=== PATIENT | female | born 1965 | race Caucasian/White ===

== ENCOUNTER 2018-01-07 16:52 | Emergency (ER) | payer MEDICARE ==
[2018-01-07] MEDS ORDERED: PROVENTIL 2.5 MG/3 ML NEB IH ONE ×4 (18:02→21:02)
[2018-01-07] MEDS ORDERED: Pepcid 20 MG VIAL IV ONE ×3 (18:02→18:26)
[2018-01-07 18:26] LABS: BASOPHIL % 0.3 % (0.0-0.4); Basophil (Absolute #) 0.03 (0-0.4); Eosinophil % 2.4 % (0.00-5.0); Eosinophil (Absolute #) 0.24 (0-0.5); Granulocyte Absolute (ANC) 7.21 (1.4-6.9); Granulocytes % 73.1 % (36.0-66.0); Hematocrit 38.3 % (35-47); Hemoglobin 12.5 gm/dl (12.0-16.0); Lymphocyte (Absolute #) 1.84 (1.0-4.6); Lymphocytes % 18.6 % (24.0-44.0); Mean Cell Volume 85.5 fl (78-100); Mean Corpuscular Hemoglobin 27.9 pg (26-32); Mean Corpuscular Hgb Concent. 32.6 g/dl (32-36); Mean Platelet Volume 8.4 fl (6-9.5); Monocyte (Absolute #) 0.55 (0.0-1.3); Monocytes % 5.6 % (0.0-12.0); Platelet Count 284 K/mm3 (150-450); Red Blood Count 4.48 M/mm3 (4.1-5.4); Red Cell Distribution Width 14.5 % (11.5-14.0); White Blood Count 9.9 K/mm3 (4.0-10.5)
[2018-01-07 18:38] LABS: INR 1.09 (0.8-3.0)
[2018-01-07 18:44] LABS: ALBUMIN 4.4 g/dl (3.5-5.0); ALKALINE PHOSPHATASE 131 U/L (38-126); ANION GAP 14.5 MEQ/L (5-15); BLOOD UREA NITROGEN 19 mg/dl (7-17); CHLORIDE 102 mEq/L (98-107); Calcium 9.9 mg/dL (8.4-10.2); Carbon Dioxide 29 mmol/L (22-30); Creatinine 1 0.78 mg/dl (0.52-1.04); Glucose 108 mg/dL (74-106); Potassium 3.8 mmol/L (3.5-5.1); SGOT/AST 25 U/L (14-36); SGPT/ALT 27 U/L (0-35); SODIUM 141 mmol/L (137-145); Total Protein 7.8 mg/dl (6.3-8.2)
--- NOTE | 2018-01-07 20:22 | ERPHSYRPT ---
- History of Present Illness Time Seen by Provider: 01/07/18 17:56 Source: patient, family () Patient Subjective Stated Complaint: pt here for sob,cough and fever,pt is deaf and is commumnicating through writing and her friend Triage Nursing Assessment: pt alert , resp easy, skin w/d pale. chest clear Physician History: Pt interviewed initially with RN and chen cano writing board and subsequently with sign boring machine operator. CC: chest pain, short of air Hx: 52 y/o patient of Dr Bill Castillo in . She reports being deaf, uses sign language, and has had lots of cough all through the night last night. She has anterior chest tightness. No exertional symptoms. No fever or chills. No N/V/D. No abd pain. She has hx of asthma. 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 She is unsure about cardiology. Timing/Duration: yesterday Severity: moderate Allergies/Adverse Reactions: acetaminophen [From Tylenol] Allergy (Verified 01/07/18 17:28) loratadine [From Claritin] Allergy (Verified 01/07/18 17:28) Home Medications: Aspirin 81 gm Chew [Baby Aspirin 81 mg Chew] 81 mg DAILY 01/07/18 [History ] Warfarin Sodium 2.5 mg [Coumadin 2.5 MG] 2.5 mg DAILY 01/07/18 [History] Hx Tetanus, Diphtheria Vaccination/Date Given: Yes Hx Influenza Vaccination/Date Given: Yes Hx Pneumococcal Vaccination/Date Given: No Immunizations Up to Date: Yes - Review of Systems Constitutional: Fatigue, Malaise, No Fever, No Chills Eyes: No Symptoms Ears, Nose, & Throat: No Symptoms Respiratory: Cough (copious), Dyspnea Cardiac: Chest Pain Abdominal/Gastrointestinal: No Abdominal Pain, No Nausea, No Vomiting, No Diarrhea Genitourinary Symptoms: No Dysuria Skin: No Rash Neurological: No Headache All Other Systems: Reviewed and Negative - Past Medical History Pertinent Past Medical History: Yes Neurological History: Stroke Respiratory History: Asthma Other Medical History: blood clot - Past Surgical History Past Surgical History: Yes Musculoskeletal: Orthopedic Surgery Female Surgical History: Hysterectomy Other Surgical History: shoulder - Social History Smoking Status: Never smoker Exposure to second hand smoke: No Drug Use: none Patient Lives Alone: No - Female History Hx Last Menstrual Period: post Hx Now: No - Nursing Vital Signs Nursing Vital Signs: Initial Vital Signs Temperature 97.7 F 01/07/18 17:12 Pulse Rate 63 01/07/18 17:12 Respiratory Rate 16 01/07/18 17:12 Blood Pressure 120/75 01/07/18 17:12 O2 Sat by Pulse Oximetry 100 01/07/18 17:12 Pain Scale Pain Intensity 2 - Physical Exam General Appearance: alert Eye Exam: PERRL/EOMI Ears, Nose, Throat Exam: normal ENT inspection, moist mucous membranes Neck Exam: normal inspection, non-tender, supple Respiratory Exam: normal breath sounds, other (no coughing here) Cardiovascular Exam: regular rate/rhythm, No murmur Gastrointestinal/Abdomen Exam: soft, No tenderness, No distention Back Exam: normal inspection Extremity Exam: normal inspection, normal range of motion, No calf tenderness, No pedal edema Neurologic Exam: alert, oriented x 3, cooperative, 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, sensation nml, other (deaf), No motor deficits Skin Exam: warm, dry, No rash SpO2 Interpretation: normal SpO2: 98 Oxygen Delivery: Room Air - Course Nursing assessment & vital signs reviewed: Yes EKG Interpreted by Me: RATE (61), Sinus Rhythm, NORMAL AXIS, NORMAL INTERVALS ( QTc 400), NORMAL QRS, NORMAL ST-T - Radiology Exams cxr X-ray Interpretation: Interpreted by me (CM, no acute, no pneumonia) Ordered Tests: Active Orders 24 hr Category Date Time Status Billiard Table Assembler STAT Care 01/07/18 17:57 Active EKG-ER Only STAT Care 01/07/18 17:57 Active IV Insertion STAT Care 01/07/18 17:57 Active Pulse Oximetry (ED) STAT Care 01/07/18 17:57 Active CHEST 1 VIEW (PORTABLE) Stat Exams 01/07/18 17:57 Taken CBC W DIFF Stat Lab 01/07/18 18:25 Completed CMP Stat Lab 01/07/18 18:31 Completed D-DIMER QUANTITATION Stat Lab 01/07/18 20:00 Completed Lactic Acid Stat Lab 01/07/18 18:20 Completed PROTIME WITH INR Stat Lab 01/07/18 18:31 Completed TROPONIN Q3H Lab 01/07/18 18:31 Completed TROPONIN Q3H Lab 01/07/18 20:25 Completed TROPONIN Q3H Lab 01/08/18 00:15 Ordered TROPONIN Q3H Lab 01/08/18 03:15 Ordered TROPONIN Q3H Lab 01/08/18 06:15 Ordered Respiratory Nebulizer STAT RT 01/07/18 18:03 Completed Respiratory Nebulizer STAT RT 01/07/18 20:56 Active Medication Summary Discontinued Medications Generic Name Dose Route Start Last Admin Trade Name Freq PRN Reason Stop Dose Admin Albuterol Sulfate 2.5 mg 01/07/18 18:02 01/07/18 18:30 Proventil 2.5 Mg/3 Ml Neb IH 01/07/18 18:03 2.5 mg STAT ONE Administration Albuterol Sulfate Confirm 01/07/18 18:06 Proventil 2.5 Mg/3 Ml Neb Administered 01/07/18 18:07 Dose 2.5 mg IH .STK-MED ONE Albuterol Sulfate 2.5 mg 01/07/18 20:56 01/07/18 21:04 Proventil 2.5 Mg/3 Ml Neb IH 01/07/18 20:57 2.5 mg STAT ONE Administration Albuterol Sulfate Confirm 01/07/18 21:02 Proventil 2.5 Mg/3 Ml Neb Administered 01/07/18 21:03 Dose 2.5 mg IH .STK-MED ONE Doxycycline Hyclate 100 mg 01/07/18 20:56 01/07/18 21:03 Vibramycin 100 Mg PO 01/07/18 20:57 100 mg STAT ONE Administration Doxycycline Hyclate Confirm 01/07/18 21:01 Vibramycin 100 Mg Administered 01/07/18 21:02 Dose 100 mg .ROUTE .STK-MED ONE Famotidine 20 mg 01/07/18 18:02 01/07/18 18:24 Pepcid 20 Mg Vial IV 01/07/18 18:03 20 mg STAT ONE Administration Famotidine Confirm 01/07/18 18:23 Pepcid 20 Mg Vial Administered 01/07/18 18:24 Dose 20 mg IV .STK-MED ONE Famotidine Confirm 01/07/18 18:26 Pepcid 20 Mg Vial Administered 01/07/18 18:27 Dose 20 mg IV .STK-MED ONE Ibuprofen 400 mg 01/07/18 20:55 01/07/18 21:03 Motrin 400 Mg PO 01/07/18 20:56 400 mg STAT ONE Administration Ibuprofen Confirm 01/07/18 21:01 Motrin 400 Mg Administered 01/07/18 21:02 Dose 400 mg .ROUTE .STK-MED ONE Lab/Rad Data: Laboratory Result Diagrams 01/07/18 18:25 01/07/18 18:31 Laboratory Results 01/07/18 01/07/18 01/07/18 Range/Units 20:25 20:00 18:31 WBC (4.0-10.5) K/mm3 RBC (4.1-5.4) M/mm3 Hgb (12.0-16.0) gm/dl Hct (35-47) % MCV (78-100) fl MCH (26-32) pg MCHC (32-36) g/dl RDW (11.5-14.0) % Plt Count (150-450) K/mm3 MPV (6-9.5) fl Gran % (36.0-66.0) % Lymphocytes % (24.0-44.0) % Monocytes % (0.0-12.0) % Eosinophils % (0.00-5.0) % Basophils % (0.0-0.4) % Basophils # (0-0.4) INR (0.8-3.0) D-Dimer < 215 (0-500) ng/mL Sodium (137-145) mmol/L Potassium (3.5-5.1) mmol/L Chloride (98-107) mEq/L Carbon Dioxide (22-30) mmol/L Anion Gap (5-15) MEQ/L BUN (7-17) mg/dl Creatinine (0.52-1.04) mg/dl Estimated GFR ML/MIN Glucose (74-106) mg/dL Lactic Acid (0.4-2.0) Calcium (8.4-10.2) mg/dL Total Bilirubin (0.2-1.3) mg/d? AST (14-36) U/L ALT (0-35) U/L Alkaline Phosphatase (38-126) U/L Troponin I < 0.012 < 0.012 (0.000-0.034) ng/ml Serum Total Protein (6.3-8.2) mg/dl Albumin (3.5-5.0) g/dl 01/07/18 01/07/18 01/07/18 Range/Units 18:31 18:31 18:25 WBC 9.9 (4.0-10.5) K/mm3 RBC 4.48 (4.1-5.4) M/mm3 Hgb 12.5 (12.0-16.0) gm/dl Hct 38.3 (35-47) % MCV 85.5 (78-100) fl MCH 27.9 (26-32) pg MCHC 32.6 (32-36) g/dl RDW 14.5 H (11.5-14.0) % Plt Count 284 (150-450) K/mm3 MPV 8.4 (6-9.5) fl Gran % 73.1 H (36.0-66.0) % Lymphocytes % 18.6 L (24.0-44.0) % Monocytes % 5.6 (0.0-12.0) % Eosinophils % 2.4 (0.00-5.0) % Basophils % 0.3 (0.0-0.4) % Basophils # 0.03 (0-0.4) INR 1.09 (0.8-3.0) D-Dimer (0-500) ng/mL Sodium 141 (137-145) mmol/L Potassium 3.8 (3.5-5.1) mmol/L Chloride 102 (98-107) mEq/L Carbon Dioxide 29 (22-30) mmol/L Anion Gap 14.5 (5-15) MEQ/L BUN 19 H (7-17) mg/dl Creatinine 0.78 (0.52-1.04) mg/dl Estimated GFR > 60 ML/MIN Glucose 108 H (74-106) mg/dL Lactic Acid (0.4-2.0) Calcium 9.9 (8.4-10.2) mg/dL Total Bilirubin 0.30 (0.2-1.3) mg/d? AST 25 (14-36) U/L ALT 27 (0-35) U/L Alkaline Phosphatase 131 H (38-126) U/L Troponin I (0.000-0.034) ng/ml Serum Total Protein 7.8 (6.3-8.2) mg/dl Albumin 4.4 (3.5-5.0) g/dl 01/07/18 Range/Units 18:20 WBC (4.0-10.5) K/mm3 RBC (4.1-5.4) M/mm3 Hgb (12.0-16.0) gm/dl Hct (35-47) % MCV (78-100) fl MCH (26-32) pg MCHC (32-36) g/dl RDW (11.5-14.0) % Plt Count (150-450) K/mm3 MPV (6-9.5) fl Gran % (36.0-66.0) % Lymphocytes % (24.0-44.0) % Monocytes % (0.0-12.0) % Eosinophils % (0.00-5.0) % Basophils % (0.0-0.4) % Basophils # (0-0.4) INR (0.8-3.0) D-Dimer (0-500) ng/mL Sodium (137-145) mmol/L Potassium (3.5-5.1) mmol/L Chloride (98-107) mEq/L Carbon Dioxide (22-30) mmol/L Anion Gap (5-15) MEQ/L BUN (7-17) mg/dl Creatinine (0.52-1.04) mg/dl Estimated GFR ML/MIN Glucose (74-106) mg/dL Lactic Acid 0.8 (0.4-2.0) Calcium (8.4-10.2) mg/dL Total Bilirubin (0.2-1.3) mg/d? AST (14-36) U/L ALT (0-35) U/L Alkaline Phosphatase (38-126) U/L Troponin I (0.000-0.034) ng/ml Serum Total Protein (6.3-8.2) mg/dl Albumin (3.5-5.0) g/dl - Progress Progress Note: 01/07/18 20:21 She felt better after pepcid and alb neb. Troponin neg. Unsure about heart and blood clot hx. REports on warfarin but INR low. EKG reassuring. Will get D- dimer and second troponin. She prefers to go home. The pain seems to be from her coughing. 01/07/18 20:54 D-dimer negative so PE not suspected. HR in 60's. 01/07/18 21:13 The second troponin is negative. She feels better and wants to go home. Will release with instructions. Counseled pt/family regarding: lab results, diagnosis, need for follow-up, rad results - Departure Time of Disposition: 21:13 Departure Disposition: Home Clinical Impression: Acute bronchitis, Chest pain, Subtherapeutic international normalized ratio ( INR) Condition: Fair Critical Care Time: No Referrals: BILL CASTILLO [Primary Care Provider] - Instructions: Acute Bronchitis, Chest Pain (DC), Anti-Clotting Medicines: Warfarin (Coumadin) Additional Instructions: You need to call Dr Castillo tomorrow about the warfarin as INR is low. Rx doxycycline. Rx albuterol MDI. Return for problems or concerns. Prescriptions: Albuterol Sulfate [Albuterol Sulfate Hfa] 2 puff IH Q4-6HPRN PRN #1 [email or web address] PRN Reason: cough or wheeze Doxycycline Hyclate 100 mg [Vibramycin 100 MG] 1 tab PO BID #20 tab
[2018-01-07] MEDS ORDERED: MOTRIN 400 MG PO ONE (20:55)
[2018-01-07] MEDS ORDERED: Vibramycin 100 MG PO ONE (20:56)
[2018-01-07] MEDS ORDERED: Vibramycin 100 MG ONE (21:01)
[2018-01-07] MEDS ORDERED: MOTRIN 400 MG ONE (21:01)
[2018-01-07 21:30] VITALS: BP 132/56
[2018-01-07 21:34] VITALS: PULSE 66; O2SAT 98
--- NOTE | 2018-01-08 08:49 | XRAY ---
Indication: Short of breath, fever, and cough. Comparison: None Portable chest demonstrates borderline cardiomegaly. No focal infiltrate, consolidation, or large effusion. Bony thorax intact with mild spinal degenerative changes. Impression: Borderline cardiomegaly. Negative acute pneumonic process or CHF.
== END 2018-01-07 21:30 | disposition home or self-care (01) ==
LOC: ED 16:52
DX: J20.9 Acute bronchitis, unspecified (principal); R07.9 Chest pain, unspecified; Z86.711 Personal history of pulmonary embolism; Z79.01 Long term (current) use of anticoagulants
CPT/HCPCS: 36000; 36415; 71045; 80053; 83605; 84484; 85025; 85379; 85610; 93005; 93041; 94640; 96374; 99284; A9270-GY